=== PATIENT | male | born 1990 | race Caucasian/White ===

== ENCOUNTER 2019-11-09 11:33 | Emergency (ER) | payer OTHER ==
[~2019-11-09] VITALS: Ht 177.8 cm; Wt 61.1 kg
--- NOTE | 2019-11-09 12:44 | NUR ---
ER PROVIDER, JERI AT BEDSIDE. PT ASSESSMENT REV AND ORDERS REC'D/ CALL LIGHT W/I REACH.
--- NOTE | 2019-11-09 13:30 | NUR ---
Provider in discussing with pt why CT/IV is needed. pt tearful d/t past hospital stay history but agreeable.
[2019-11-09] MEDS ORDERED: SODIUM CHLORIDE FLUSH 10ML SYR IVF ONE (14:00)
--- NOTE | 2019-11-09 14:20 | NUR ---
pt out of room to CT
--- NOTE | 2019-11-09 14:35 | NUR ---
Returned from CT
[2019-11-09 14:45] VITALS: BP 128/84
[2019-11-09] MEDS ORDERED: DEXAMETHASONE 4 MG TABLET ONE (15:28)
[2019-11-09] MEDS ORDERED: OMNIPAQUE 350 MG/ML, 100ML BOTTLE ONE (15:29)
[2019-11-09] MEDS ORDERED: DEXAMETHASONE 4 MG/ML, 1ML PO ONE (15:30)
--- NOTE | 2019-11-09 15:36 | NUR ---
DC EDUCATION PROVIDED, PT DEMONSTRATES UNDERSTANDING. PT AMBULATED STEADILY TO DC WITH RN AND FRIEND.
== END 2019-11-09 15:38 | disposition home or self-care (01) ==
LOC: EDSEX 11:33 → ED 15:30
DX: G89.11 Acute pain due to trauma (principal); R51 Headache; K09.8 Other cysts of oral region, not elsewhere classified; R07.0 Pain in throat; Z91.49 Other personal history of psychological trauma, not elsewhere classified
CPT/HCPCS: 70487; 99285; J1100; Q9967

== ENCOUNTER 2020-01-25 12:53 | Emergency (ER) | payer OTHER ==
[~2020-01-25] VITALS: Ht 177.8 cm; Wt 65.1 kg
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
--- NOTE | 2020-01-25 13:02 | NUR ---
TRIAGE AND CLINICAL SCREEN DONE BY THIS RN.
--- NOTE | 2020-01-25 13:16 | NUR ---
PT CONVERSING W/O DIFFICULTY. RESP EVEN AND UNLABORED. NADN.
--- NOTE | 2020-01-25 13:23 | NUR ---
IN ROOM FOR [facility].
[2020-01-25] MEDS ORDERED: SODIUM CHLORIDE FLUSH 10ML SYR IVF ONE (13:30)
[2020-01-25] MEDS ORDERED: SODIUM CHLORIDE 0.9% 1,000ML IVBOLUS ONE (13:30)
[2020-01-25] MEDS ORDERED: ONDANSETRON 2MG/ML, 2ML IVPush ONE (13:30)
[2020-01-25] MEDS ORDERED: MORPHINE SULFATE 4 MG/ML, 1ML IVPush PRN (13:30)
[2020-01-25] MEDS ORDERED: ONDANSETRON 2MG/ML, 2ML ONE (13:52)
[2020-01-25] MEDS ORDERED: MORPHINE SULFATE 4 MG/ML, 1ML ONE (13:52)
[2020-01-25 14:01] LABS: BASOPHILS # (AUTO) 0.02 x10^3/uL (0-0.1); BASOPHILS % (AUTO) 0 % (0-1); EOSINOPHILS # (AUTO) 0.14 x10^3/uL (0-0.4); EOSINOPHILS % (AUTO) 2 % (1-7); LYMPHOCYTES # (AUTO) 1.04 x10^3/uL (1-3.4); LYMPHOCYTES % (AUTO) 11 % (22-44); MD NO; MEAN CORPUSCULAR HEMOGLOBIN 31.2 pg (27.5-34.5); MEAN CORPUSCULAR HGB CONC 33.9 g/dL (33.2-36.2); MONOCYTES # (AUTO) 0.67 x10^3/uL (0.2-0.8); MONOCYTES % (AUTO) 7 % (2-9); NEUTROPHILS # (AUTO) 7.83 x10^3/uL (1.8-6.8); NEUTROPHILS % (AUTO) 81 % (42-75); PLATELET COUNT 275 x10^3/uL (130-400); RED CELL DISTRIBUTION WIDTH 14.2 % (9.4-14.8)
--- NOTE | 2020-01-25 14:10 | NUR ---
BREAK RN: PT MEDICATED ORDERED FOR 04/07 PAIN. PT AO X 4. SKIN PWD. RESP EVEN AND UNLABORED. PT ON CONT BP AND O2 MONITORS. CALL LIGHT WITHIN REACH. WILL CONT TO MONITOR PT.
[2020-01-25 14:11] LABS: ALBUMIN 4.4 g/dL (3.4-5.0); ANION GAP 5 mmol/L (5-15); CALCIUM 8.8 mg/dL (8.5-10.1); CHLORIDE 105 mmol/L (98-107); CREATININE 0.89 mg/dL (0.7-1.3)
--- NOTE | 2020-01-25 14:37 | NUR ---
PT TO CT.
[2020-01-25] MEDS ORDERED: OMNIPAQUE 350 MG/ML, 75ML BOTTLE ONE (14:52)
--- NOTE | 2020-01-25 15:09 | NUR ---
PT BACK FROM CT.
--- NOTE | 2020-01-25 16:30 | NUR ---
ALL TESTS RESULTED. PT IS UP FOR RECHECK AT THIS TIME.
[2020-01-25] MEDS ORDERED: LIDOCAINE-MPF 1%, 5ML ONE ×2 (16:49→17:08)
--- NOTE | 2020-01-25 16:56 | NUR ---
PT UPDATED ON POC FOR CONSULT.
[2020-01-25] MEDS ORDERED: LIDOCAINE 1%, 10ML INFIL ONE (17:00)
--- NOTE | 2020-01-25 18:12 | NUR ---
CYST DRAINED, PT IS UP FOR RECHECK AT THIS TIME.
--- NOTE | 2020-01-25 18:53 | NUR ---
Report received from DEBORAH Lunsford. This RN to assume care. Patient up for recheck.
[2020-01-25 18:58] VITALS: BP 118/84
--- NOTE | 2020-01-25 19:21 | NUR ---
Discharge instructions given. All questions and concerns addressed. Patient ambulatory with a steady gait. Belongings with patient.
== END 2020-01-25 19:22 | disposition home or self-care (01) ==
LOC: ED 13:23
DX: R56.1 Post traumatic seizures (principal); R22.9 Localized swelling, mass and lump, unspecified
CPT/HCPCS: 36415; 41008; 70487; 80048; 82040; 85025; 96374; 96375; 99285; J2270; J2405; J7030; Q9967

== ENCOUNTER 2020-02-08 16:20 | Emergency (ER) | payer OTHER ==
[~2020-02-08] VITALS: Ht 177.8 cm; Wt 62.6 kg
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
--- NOTE | 2020-02-08 17:55 | NUR ---
PIV ACCESS OBTAINED, 20 R FA. RN TO ADMINISTER MEDICATION PER EMAR.
[2020-02-08] MEDS ORDERED: DEXAMETHASONE 4 MG/ML, 5ML ONE (17:58)
[2020-02-08] MEDS ORDERED: DEXAMETHASONE 4 MG/ML, 1ML IVPush ONE (18:00)
[2020-02-08] MEDS ORDERED: AMPICILLIN/SULBACTAM 3 GM in SODIUM CHLORIDE 0.9% 100 ML IV ONE (18:00)
[2020-02-08] MEDS ORDERED: SODIUM CHLORIDE FLUSH 10ML SYR IVF ONE (18:00)
[2020-02-08 18:20] LABS: BASOPHILS # (AUTO) 0.02 x10^3/uL (0-0.1); BASOPHILS % (AUTO) 0 % (0-1); EOSINOPHILS # (AUTO) 0.09 x10^3/uL (0-0.4); EOSINOPHILS % (AUTO) 1 % (1-7); LYMPHOCYTES # (AUTO) 0.94 x10^3/uL (1-3.4); LYMPHOCYTES % (AUTO) 7 % (22-44); MD NO; MEAN CORPUSCULAR HEMOGLOBIN 31.6 pg (27.5-34.5); MEAN CORPUSCULAR HGB CONC 34.2 g/dL (33.2-36.2); MEAN CORPUSCULAR VOLUME 92.2 fL (81-97); MEAN PLATELET VOLUME 8.2 fL (7.4-10.4); MONOCYTES # (AUTO) 0.98 x10^3/uL (0.2-0.8); MONOCYTES % (AUTO) 8 % (2-9); NEUTROPHILS # (AUTO) 10.82 x10^3/uL (1.8-6.8); NEUTROPHILS % (AUTO) 84 % (42-75); PLATELET COUNT 238 x10^3/uL (130-400); RED BLOOD COUNT 5.67 x10^6/uL (4.38-5.82); RED CELL DISTRIBUTION WIDTH 13.9 % (9.4-14.8)
[2020-02-08 18:28] LABS: ALBUMIN 4.4 g/dL (3.4-5.0); ANION GAP 5 mmol/L (5-15); CALCIUM 9.1 mg/dL (8.5-10.1); CHLORIDE 104 mmol/L (98-107); CREATININE 0.96 mg/dL (0.7-1.3)
[2020-02-08 18:45] VITALS: BP 139/75
--- NOTE | 2020-02-08 18:46 | NUR ---
PT RESTING COMFORTABLY ON GURNEY. CALL LIGHT AND PERSONAL BELONGINGS WITHIN REACH. NO NEEDS AT THIS TIME.
--- NOTE | 2020-02-08 19:03 | NUR ---
REPORT TO DEBORAH MRUDOCK.
== END 2020-02-08 19:24 | disposition home or self-care (01) ==
LOC: ED 19:00
DX: Z03.818 Encounter for observation for suspected exposure to other biological agents ruled out (principal); K11.6 Mucocele of salivary gland; R13.10 Dysphagia, unspecified
CPT/HCPCS: 36415; 80048; 82040; 85025; 96365; 96375; 99284; J0295; J1100; U0001